=== PATIENT | female | born 1940 | race Caucasian/White ===

== ENCOUNTER → 2018-04-29 06:49 | Outpatient (CLI) | payer MEDICARE, SELFPAY ==
--- NOTE | 2018-04-29 06:52 | CA_ITS ---
PROCEDURE: 2-D M-mode and color Doppler study INDICATIONS FOR THE TEST: Chest pain COPD Heart Murmur Tobacco Smoking Palpitations Fatigue Syncope Edema Hypertension+Diabetes Mellitus Rheumatic Fever SOB+YOST Obesity Hyperlipidemia Family History HD Additional History CAD, STENTS PATIENT INFORMATION HEIGHT: 66 WEIGHT:172 GENDER: Female B/P:139/78 2-D/M-MODE INTERPRETATION: 2-D MEASUREMENTS OBSERVED VALUES IN CMS Right Ventricular Dimension (RVDd) 1.5 Interventricular Septum (Thickness)(IVsd) 1.2 Left Ventricular Internal Dimensions(LVIDd) 4.5 Left Ventricular Posterior Wall (Thickness)(LVPWd) 1.0 Aortic Root 3.1 Aortic Cusp Separation 2.0 Left Atrial Dimensions (LAD) 3.8 2D 1. Left atrium is mildly enlarged, left ventricle is normal size, there is mild concentric left ventricular hypertrophy, visually estimated ejection fraction of 55% with no obvious regional wall motion abnormality. 2. The right atrium and right ventricle are normal size and contractility. 3. The aortic valve is minimally thickened and fibrosed. 4. The mitral and tricuspid valve leaflets are minimally thickened. 5. The pulmonic valve is poorly visualized. 6. No significant pericardial effusion noted DOPPLER INTERROGATION: Doppler interrogation of the aortic, mitral and tricuspid valvular presence of moderate mitral and mild tricuspid regurgitation, calculated right ventricular systolic pressure is 42 mmHg consistent with moderate pulmonary hypertension, inferior vena cava is dilated without significant inspiratory collapse. CONCLUSION: 1. Mildly enlarged left atrium, normal left ventricular size, mild concentric left ventricular hypertrophy, visually estimated ejection fraction 55% with no obvious regional wall motion abnormality, diastolic parameters are inconclusive. 2. Moderate mitral and mild tricuspid regurgitation, calculated right ventricular systolic pressure is 42 mmHg consistent with moderate pulmonary hypertension. Inferior vena cava is dilated without significant. 3. No significant pericardial effusion noted.
--- NOTE | 2018-04-29 06:52 | NM_ITS ---
History and Indications: Coronary artery, hyperlipidemia, chest pain and shortness of breath Procedure: Patient received a 0.4 mg of Lexiscan, resting heart rate was 52 bpm, blood pressure was 196/95. With Lexiscan maximum heart rate achieved was 75 bpm which is less than 85% of the maximum predicted heart rate and the blood pressure was 154/70. With Lexiscan patient denied any complained of chest pain. Electrocardiogram: Resting electrocardiogram shows sinus bradycardia, inferolateral ST-T wave changes consider ischemia, with Lexiscan less than 1.[address] segment depression noted from the baseline EKG. The EKG portion of the Lexiscan Myoview is nondiagnostic. Cardiac stress and resting SPECT images: Cardiac stress and rest SPECT images were obtained using technetium 99 Myoview 32.9 mCi at stress and 10.6 mCi at rest, gated SPECT further analysis of segmental wall motion and calculation of the ejection fraction also done. Cardiac stress and rest images show uniform myocardial activity without any segmental perfusion abnormality, computer derived ejection fraction is over 65% with no obvious regional wall motion abnormality, right ventricle is normal size and contractility. Conclusion: 1. The EKG portion of the Lexiscan Myoview is nondiagnostic. 2. No obvious scintigraphic evidence of reversible ischemia seen, computer derived ejection fraction is over 65% with no obvious regional wall motion abnormality, right ventricle is normal size and contractility. 3. Normal Lexiscan Myoview study.
--- NOTE | 2018-04-29 07:41 | HMH.ITSHM ---
ASA ATORVASTATIN BLOOD THINNER
== END ==
PROVIDERS: PCP Internal Medicine; Visit Provider Internal Medicine
DX: R06.02 Shortness of breath (principal); I25.10 Atherosclerotic heart disease of native coronary artery without angina pectoris
CPT/HCPCS: 78452; 93017; 93306; A9502; J2785

== ENCOUNTER → 2020-09-13 12:48 | Outpatient (CLI) | payer MEDICARE, SELFPAY ==
--- NOTE | 2020-09-13 | CA_ITS ---
APPROVED REPORT EXAM: Comprehensive 2D, Doppler, and color-flow Echocardiogram Rehabilitation Counsellor: Zoila Galarza RDCS Ht: 5 ft 6 in Wt: 169lbs BSA: 1.86 BP: 167/65 mmHg Indications: AF,ABN EKG,CAD,PHTN 2D Dimensions LVOT 1.47 cm (M/F) 1.5-2.5 M-Mode Dimensions RVDd 2.05 cm (0.9-2.6) LA Diam 3.54 cm (1.9-4.0) LVDd 4.10 cm (3.5-5.7) Ao Diam 3.47 cm (2.0-3.7) LVDs 2.32 cm (3.5-5.7) IVSd 1.21 cm (0.6-1.1) PWd 1.02 cm (0.6-1.1) EF (Teich) 75.10% FS 43.40% EDV (Teich) 74.20 mL ESV (Teich) 18.50 mL LV Diastology E Decel Time 100.00 (160-240 msec) E/A Ratio 5.7 MED E' 6.20 (< 7 cm/sec) E'/MED E' Ratio 15.60 (>14) LAT E' 4.30 (<10 cm/sec) E/LAT E' Ratio 22.49 (>14) Mitral Valve MV E Max Flex. 97.00 (40-130 cm/s) MV A Velocity 17.00 (40-130 cm/s) E/A Ratio 5.76 MV Decel. Time 100.00 (160-240 ms) MV PHT 29.00 ms Tricuspid Valve TR P. Velocity 274.00 cm/s RAP Estimate 10.00 mmHg RVSP 40.10 mmHg Left Ventricle Left atrium is moderately enlarged, left ventricle is normal size, mild concentric left ventricular hypertrophy, visually estimated ejection fraction 55% with no regional wall motion abnormality, diastolic parameters are inconclusive. Right Ventricle Right atrium and right ventricle are normal size and contractility. Aortic Valve Aortic valve is minimally thickened and fibrosed, there is no aortic stenosis or aortic insufficiency. Mitral Valve Mitral valve leaflets are minimally thickened, there is mild mitral annular calcification present, posterior mitral leaflet is mildly redundant, there is no mitral stenosis, there is moderate mitral regurgitation. Tricuspid Valve Tricuspid valve is grossly normal, there is mild tricuspid regurgitation, tricuspid regurgitation jet velocity is inadequate for calculation of the right ventricular systolic pressure. Pulmonic Valve Pulmonic valve is poorly visualized. Great Vessels Aortic root is normal size. Pericardium No significant pericardial effusion noted. Conclusion 1. Moderately enlarged left atrium, normal left ventricular size, mild concentric left ventricular hypertrophy, visually estimated ejection fraction 55% with no regional wall motion abnormality, diastolic parameters are inconclusive. 2. Moderate mitral and mild tricuspid regurgitation. 3. No significant pericardial effusion noted. Electronically signed by : Huey Feng, 09/14/2020 05:44:02
== END ==
PROVIDERS: Visit Provider Internal Medicine
DX: I48.3 Typical atrial flutter (principal)
CPT/HCPCS: 93306

== ENCOUNTER 2020-10-14 11:55 | Day surgery (SDC) | payer MEDICARE, SELFPAY ==
[2020-10-14] VITALS (8 sets, daily range): BP systolic 71–143; BP diastolic 42–97; PULSE 38–110; RESP 14–18; TEMP 36.6; O2SAT 90–100; BMI 27.1
[2020-10-14 12:28] LABS: Basophils # 0.3 K/mm3 (0-0.2); Basophils % 4.5 % (0.1-2.0); Eosinophils # 0.1 K/mm3 (0.0-0.4); Hematocrit 51.9 % (37.0-47.0); Hemoglobin 15.2 g/dL (12.2-16.2); Lymphocytes # 2.3 K/mm3 (0.7-4.5); Lymphocytes % 31.6 % (10-50); Mean Corpuscular HGB Conc 29.3 g/dL (31.8-35.4); Mean Corpuscular Hemoglobin 32.3 pg (27.0-31.2); Mean Platelet Volume 14.3 fl (7.4-10.4); Monocytes # 0.4 K/mm3 (0.1-1.0); Monocytes % 5.4 % (1.7-9.3); Neutrophils # 4.6 K/mm3 (1.8-7.8); Platelet Count 198 K/mm3 (142-424); Red Blood Count 4.71 M/mm3 (4.20-5.40); White Blood Count 7.3 K/mm3 (4.8-10.8)
--- NOTE | 2020-10-14 12:40 | CA_ITS ---
APPROVED REPORT EXAM: Comprehensive 2D, Doppler, and color-flow Echocardiogram Technical Expert: Violet Rm RT(R) Ht: 5 ft 5 in Wt: 168lbs BSA: 1.84 BP: 164/86 mmHg Indications: a-fib Procedure After obtaining informed consent, patient underwent transesophageal echo in the [facility]. Type of Sedation : Conscious Sedation Sedation was administered by Kendrick Reynolds C.R.N.A. Transesophageal probe was inserted and advanced into esophagus without difficulty by Dr. Mary Pineda. The ISAMAR was performed without complications. Synchronized Cardioversion attempted: Successful Synchronized Cardioversion acheived with 150 Joules after 1 attempt(s). Rhythm following Synchronized Cardioversion: Sinus Bradycardia Throughout the procedure, the blood pressure, pulse oximetry, cardiac rhythm, and rate were monitored. The patient tolerated the procedure without adverse effects. Recovery from conscious sedation was uneventful and vital signs were stable. Left Ventricle Left ventricle is normal size, visually estimated ejection fraction 55% with no regional wall motion abnormality. Right Ventricle Right ventricle is mildly enlarged with normal contractility. Atria Left atrium is moderately enlarged, left atrial appendage free of thrombus, there is poor appendage flow by spectral Doppler. Right atrium is mildly enlarged. Intra-atrial septum is intact, there is no flow across the interatrial septum, agitated saline contrast study fails to identify intracardiac shunt. Aortic Valve Aortic valve is minimally thickened and fibrosed, there is no aortic stenosis or aortic insufficiency. Mitral Valve Mitral valve leaflets are minimally thickened, there is no mitral stenosis, there is moderate to severe mitral regurgitation. Tricuspid Valve Tricuspid valve is grossly normal, there is mild tricuspid regurgitation. Pulmonic valve is grossly normal, Great Vessels Aortic root is normal size Ascending, arch and descending thoracic aorta there is no aneurysm or dissection, atheromatous plaque seen in the ascending and descending thoracic aorta. Pericardium No significant pericardial effusion noted. Conclusion 1. Moderately enlarged left atrium, normal left ventricular size, mild concentric left ventricular hypertrophy, visually estimated ejection fraction 55% in the obtained views with no regional wall motion abnormality. No thrombus seen in the left atrial appendage. 2. Moderate to severe mitral regurgitation. 3. Other ancillary findings as described above. 4. Successful electrical DC cardioversion to restore sinus rhythm. Electronically signed by : Huey Feng, 10/14/2020 15:17:19
[2020-10-14 12:45] LABS: Chloride 103 mmol/L (98-107)
[2020-10-14 12:46] LABS: Potassium 4.4 mmoL/L (3.5-5.1); Sodium 141 mmol/L (136-145)
[2020-10-14 12:49] LABS: Anion Gap 12.4 mEq/L (5-15); Blood Urea Nitrogen 18 mg/dl (7-17); Calcium 9.5 mg/dl (8.4-10.2); Carbon Dioxide 30 mmol/L (22.0-30.0); Creatinine Clearance Estimated 55 mL/min (50-200); Estimated Glomerular Filt Rate 60 ml/min (>60); GFR (African American) 73 ML/MIN (>60); Glucose 98 mg/dl (74-100)
--- NOTE | 2020-10-14 12:53 | HMH.ANESCL ---
[facility] Anesthesia Checklist - Patient Identification Patient Identification: Arm Band, Verbal (Name & ) - Structural Data Admitted From: Home Planned Operative Procedure/s: ISAMAR Consent for Planned Operative Procedure(s) Verified: Yes Verified Documents: History and Physical - NPO Status Verified Time NPO: 00:00 - Chart Verification Results Verified: CBC, BMP - Additional verifications Patient : No Anesthesia Reactions: No Hx Blood Transfusions: No Blood Transfusion Reaction: No Cephalosporin Allergy: No Previous Colonoscopy: Yes - Cardiovascular Assessment Heart Sounds: S1 & S2 Pulse Strength: Baseline Pulse Rhythm: Regular Peripheral Edema: No - Airway Assessment C-Spine Mobility Assessed: Yes TMJ Mobility Assessed: Yes Dentition: Good Dentition - Neurological Assessment Level of Consciousness: Awake, Alert, Appropriate Hx Seizures: No Numbness or tingling in extremities: No - Anesthesia Plan Anesthesia Plan: Verified ASA Class: III Anesthesia Type: MAC [facility] History I have reviewed the patient's past medical history: Yes Medical History: Reports:: Atrial Fibrillation, Congestive Heart Failure, Coronary Artery Disease, Gastroesophageal Reflux Disease(GERD), Hyperlipidemia, Hypertension, Myocardial Infarction *Have you ever received a pneumonia vaccine?: Yes *Have you received a flu vaccine this season?: No Anesthesia experience/problems:: none Other Surgeries: Yes: Appendectomy, Cardiac Catheterization, Coronary Stent, Thyroidectomy, Tubal Ligation - *Social History Last grade of school completed: High school graduate Smoking Status: Never smoker Alcohol Intake: never Substance Use Type: denies use *Occupational Status:: retired *Travel in the last 8 weeks: None Family Hx:: Heart Attack, Stroke
[2020-10-14 13:03] LABS: Coronavirus 19 IgG Antibody Negative (Negative); Coronavirus 19 IgM Antibody Negative (Negative)
--- NOTE | 2020-10-14 13:40 | SUR.PHASEII ---
CARDIOVERSION COMPLETED. BRIEF ASYSTOLE FOLLOWED BY SB. HYPOTENSION NOTED. SEE CHARTING FOR DETAILS.
--- NOTE | 2020-10-14 13:48 | SUR.PHASEII ---
1335 BP = 70/42 HR = 45 RR = 16 O2 = 91% ON 4L NC
== END 2020-10-14 15:00 | disposition home or self-care (01) ==
LOC: CATHLAB 11:58
PROVIDERS: PCP Internal Medicine Cardiovascular Disease; Visit Provider Internal Medicine Cardiovascular Disease
DX: E78.5 Hyperlipidemia, unspecified (principal); I11.9 Hypertensive heart disease without heart failure; I25.10 Atherosclerotic heart disease of native coronary artery without angina pectoris; I27.20 Pulmonary hypertension, unspecified; I34.0 Nonrheumatic mitral (valve) insufficiency; I48.92 Unspecified atrial flutter; K21.9 Gastro-esophageal reflux disease without esophagitis; R06.02 Shortness of breath; I48.91 Unspecified atrial fibrillation; I65.23 Occlusion and stenosis of bilateral carotid arteries; Z79.01 Long term (current) use of anticoagulants
CPT/HCPCS: 80048; 85025; 86328; 92960; 93225; 93312

== ENCOUNTER 2021-04-13 12:52 | Day surgery (SDC) | payer MEDICARE, SELFPAY ==
[2021-04-13] VITALS (11 sets, daily range): BP systolic 128–187; BP diastolic 58–97; PULSE 51–77; RESP 13–18; TEMP 36.8; O2SAT 95–98; BMI 26.8
--- NOTE | 2021-04-13 13:28 | IR_ITS ---
APPROVED REPORT Patient Location: Outpatient Algebraist: KAMLESH Washington RT (R) PROCEDURES Left heart catheterization Left ventriculogram Selective coronary angiogram INDICATION Crescendo angina pectoris, Known coronary disease with multivessel stenting including left main stenting, Informed consent was obtained prior to the procedure. COMPLICATIONS None Estimated Blood Loss: less than 10 mls TECHNIQUE One percent lidocaine used to anesthetize the right anterior aspect of the wrist. The right radial artery was accessed via the Seldinger technique. A 6 Kazakh sheath was placed in the right radial artery. 2.5 mg of verapamil, 800 mcg of nitroglycerin, 1mg Lidocaine and 5000 U Heparin were given through the arterial sheath. The trap catheter was also used to perform left heart catheterization, left ventriculogram and selective coronary angiogram. At the end of the procedure the sheath was removed good hemostasis was achieved using Traclet band, patient was transferred to the postop holding area in stable condition. ANGIOGRAPHIC RESULTS The left main artery Has a stent in the mid segment which extends into the LAD the stent is widely patent with 20 to 30% concentric in-stent restenosis. The left anterior descending artery Has a stent which originates off the left main artery. The proximal portion is widely patent with no angiographic evidence of in-stent restenosis there is excellent transitioning into the proximal LAD which then has additional 20% stenoses. The remaining LAD is widely patent The circumflex artery Is nondominant has a stent originating off the left main artery which is widely patent with minimal in-stent restenosis and excellent distal transitioning. The right coronary artery Is a large dominant vessel and has mild mid vessel 10 to 20% stenosis The LANE ventriculogram reveals Normal 65% The left ventricular end-diastolic pressure 10 mmHg IMPRESSION Widely patent stents as described above Normal ejection fraction Normal left ventricular and SI pressure PLAN 1. Continue medical management 2. Treatment of hypertension 3. Aggressive risk factor modification Electronically signed by : Jad Becerra, 04/13/2021 14:27:44
[2021-04-13 13:31] LABS: Basophils % 0.7 % (0.1-2.0); Eosinophils % 0.8 % (0.1-12.0); Hematocrit 41.4 % (37.0-47.0); Hemoglobin 13.9 g/dL (12.2-16.2); Lymphocytes # 2.2 K/mm3 (0.7-4.5); Mean Corpuscular HGB Conc 33.6 g/dL (31.8-35.4); Mean Corpuscular Hemoglobin 32.3 pg (27.0-31.2); Mean Corpuscular Volume 96.2 fl (81-99); Mean Platelet Volume 8.7 fl (7.4-10.4); Monocytes # 0.3 K/mm3 (0.1-1.0); Monocytes % 5.9 % (1.7-9.3); Neutrophils % 53.6 % (37.0-80.0); Platelet Count 196 K/mm3 (142-424); White Blood Count 5.6 K/mm3 (4.8-10.8)
[2021-04-13 13:55] LABS: Chloride 105 mmol/L (98-107); Potassium 4.5 mmoL/L (3.5-5.1); Sodium 141 mmol/L (136-145)
[2021-04-13 13:58] LABS: Blood Urea Nitrogen 14 mg/dl (7-17); Creatinine Clearance Estimated 53 mL/min (50-200); Estimated Glomerular Filt Rate 60 ml/min (>60); GFR (African American) 73 ML/MIN (>60)
[2021-04-13 13:59] LABS: Anion Gap 13.5 mEq/L (5-15); Calcium 9.5 mg/dl (8.4-10.2); Carbon Dioxide 27 mmol/L (22.0-30.0); Glucose 86 mg/dl (74-100)
== END 2021-04-13 16:35 | disposition home or self-care (01) ==
PROVIDERS: PCP Family Medicine; Visit Provider Internal Medicine
DX: E78.2 Mixed hyperlipidemia (principal); I11.9 Hypertensive heart disease without heart failure; I27.20 Pulmonary hypertension, unspecified; I34.0 Nonrheumatic mitral (valve) insufficiency; I48.0 Paroxysmal atrial fibrillation; I65.23 Occlusion and stenosis of bilateral carotid arteries; K21.9 Gastro-esophageal reflux disease without esophagitis; R06.00 Dyspnea, unspecified; R60.0 Localized edema; I25.110 Atherosclerotic heart disease of native coronary artery with unstable angina pectoris; T82.855A Stenosis of coronary artery stent, initial encounter
CPT/HCPCS: 36415; 80048; 85025; 93458; 99152; C1725; C1769; J1644; Q9967; U0003

== ENCOUNTER → 2022-02-16 11:57 | Outpatient (CLI) | payer MEDICARE, SELFPAY ==
--- NOTE | 2022-02-16 12:05 | XR_ITS ---
FINAL REPORT TECHNIQUE: Chest PA & Lateral CLINICAL HISTORY: soa FINDINGS: 2 views of the chest were performed. The heart size is normal. The mediastinum is within normal limits. There is a calcified granuloma in the medial right apex. There are no pleural effusions. There is no pneumothorax. The bony thorax appears intact. IMPRESSION: No acute cardiopulmonary process. Reviewed, Interpreted and Dictated by Abdiaziz Carbajal MD Transcribed by Junior Leiva Authenticated by Abdiaziz Carbajal MD on 02/16/2022 02:21:08 PM [facility]
[2022-02-16 13:06] LABS: Basophils % 0.6 % (0.1-2.0); Eosinophils % 0.5 % (0.1-12.0); Hematocrit 40.4 % (37.0-47.0); Hemoglobin 13.3 g/dL (12.2-16.2); Lymphocytes # 1.6 K/mm3 (0.7-4.5); Lymphocytes % 24.7 % (10-50); Mean Corpuscular Hemoglobin 32.8 pg (27.0-31.2); Mean Corpuscular Volume 99.6 fl (81-99); Mean Platelet Volume 9.2 fl (7.4-10.4); Monocytes # 0.4 K/mm3 (0.1-1.0); Neutrophils # 4.4 K/mm3 (1.8-7.8); Neutrophils % 68.1 % (37.0-80.0); Platelet Count 204 K/mm3 (142-424); Red Blood Count 4.06 M/mm3 (4.20-5.40); Red Cell Distribution Width 12.3 % (11.5-17.5); White Blood Count 6.4 K/mm3 (4.8-10.8)
[2022-02-16 15:13] LABS: Alanine Aminotransferase 22 U/L (12-78); Alkaline Phosphatase 85 U/L (38-126); Anion Gap 10.3 mEq/L (5-15); Aspartate Amino Transferase 32 U/L (14-36); Bilirubin,Direct 0.2 mg/dl (0.0-0.4); Bilirubin,Indirect 0.5 mg/dL (0.0-0.9); Bilirubin,Total 0.7 mg/dl (0.2-1.3); Bilirubin,Unconjugated 0.5 mg/dL (0.0-1.1); Blood Urea Nitrogen 15 mg/dl (7-17); Calcium 9.2 mg/dl (8.4-10.2); Carbon Dioxide 28 mmol/L (22.0-30.0); Chloride 105 mmol/L (98-107); Estimated Glomerular Filt Rate 60 ml/min (>60); GFR (African American) 73 ML/MIN (>60); Glucose 78 mg/dl (74-100); Potassium 4.3 mmoL/L (3.5-5.1); Sodium 139 mmol/L (136-145); Total Protein,Serum 6.6 g/dl (6.3-8.2)
[2022-02-16 15:29] LABS: Free T4 (Free Thyroxine) 1.35 ng/dl (0.78-2.19)
[2022-02-16 15:42] LABS: Thyroid Stimulating Hormone 2.23 uIU/mL (0.465-4.68)
== END ==
PROVIDERS: PCP Family Medicine; Visit Provider Internal Medicine
DX: E78.5 Hyperlipidemia, unspecified (principal); I11.9 Hypertensive heart disease without heart failure; I25.10 Atherosclerotic heart disease of native coronary artery without angina pectoris; I27.20 Pulmonary hypertension, unspecified; I34.0 Nonrheumatic mitral (valve) insufficiency; I48.0 Paroxysmal atrial fibrillation; I48.92 Unspecified atrial flutter; I65.29 Occlusion and stenosis of unspecified carotid artery; I77.9 Disorder of arteries and arterioles, unspecified; K21.9 Gastro-esophageal reflux disease without esophagitis; R06.00 Dyspnea, unspecified; R94.31 Abnormal electrocardiogram [ECG] [EKG]; E11.9 Type 2 diabetes mellitus without complications; I63.9 Cerebral infarction, unspecified
CPT/HCPCS: 36415; 71046; 80048; 80076; 84439; 84443; 85025

== ENCOUNTER 2022-02-20 17:20 | Inpatient (IN) | payer MEDICARE, SELFPAY ==
[2022-02-20] VITALS (8 sets, daily range): BP systolic 80–138; BP diastolic 40–84; PULSE 42–105; RESP 16–20; TEMP 36.6; O2SAT 89–100; BMI 27.2; BMI 26.5
[2022-02-20 13:15] LABS: Coronavirus 19, PCR Not Detected (NotDetected); Influenza A, PCR Not Detected (NotDetected); Influenza B, PCR Not Detected (NotDetected)
--- NOTE | 2022-02-20 13:21 | CA_ITS ---
APPROVED REPORT EXAM: Comprehensive 2D, Doppler, and color-flow Echocardiogram Operating Room Assistant: RT Jem(R) Ht: 5 ft 6 in Wt: 169lbs BSA: 1.86 BP: 150/84 mmHg Indications: HTN, hyperlipidemia, PHTN, CAD, GERD, AFIB Procedure After obtaining informed consent, patient underwent transesophageal echo in the [facility]. Type of Sedation : Conscious Sedation Sedation was administered by Kyree Agarwal C.R.N.A. Propofol () Transesophageal probe was inserted and advanced into esophagus without difficulty by Dr. Felix Becerra. Echo enhancement indication: R/O Thrombus. The ISAMAR was performed without complications. Synchronized Cardioversion acheived with 200 Joules after 1 attempt(s). Throughout the procedure, the blood pressure, pulse oximetry, cardiac rhythm, and rate were monitored. The patient tolerated the procedure without adverse effects. Recovery from conscious sedation was uneventful and vital signs were stable. Following the cardioversion patient experienced approximately 15 seconds of asystole. Following the asystole she then was quite bradycardic with heart rates in the high teens which then progressed to the 20s 30s and then low 40s. Patient left the [facility] following recovery with sinus bradycardia at 40 to 42 bpm Electronically signed by : Jad Becerra MD 02/21/2022 12:03:02
--- NOTE | 2022-02-20 17:43 | PC.NURSE ---
Addendum entered by Rufino Richardson RN 02/20/22 17:44: cefazolin was to be given in the am before surgery. Original Note: Called and spoke with Joan in veterinarian laboratory animal care at this time, in order to clarify cefazolin doesn't need to be given at this time. Joan stated med
--- NOTE | 2022-02-20 18:33 | PC.NURSE ---
Pt is a poor historian in RE to meds taken on regular basis.
[2022-02-21] VITALS (16 sets, daily range): BP systolic 96–163; BP diastolic 47–73; PULSE 48–65; RESP 14–21; TEMP 36.5–36.9; O2SAT 90–97; BMI 27.1
--- NOTE | 2022-02-21 | IR_ITS ---
APPROVED REPORT Patient Location: Emergent Vegetable Inspector: KAMLESH Bhakta RT (R) PROCEDURES 1.Pocket formation for Permanent Pacemaker Placement. 2. Placement of an atrial sensing and pacing coil into the right atrial appendage. 3. Placement of a ventricular sensing and pacing coil in the right ventricular apex. 4. Permanent Pacemaker Placement. INDICATION Symptomatic BradycardiaSymptomatic Bradycardia Informed consent was obtained prior to the procedure. COMPLICATIONS NONE Estimated Blood Loss: LESS THAN 10 ML TECHNIQUE 1% Lidocaine with epinephrine used to anesthetized the left anterior aspect of the chest. Scalpel was used to make the initial cutaneous incision while electrocautery was used to dissect down tinto the fascia. The fascia was lifted off the pectoralis muscle and digitally manipulated creating a pocket for the pacemaker. The patient was then placed in Trendelenburg position and the subclavian vein was accessed twice via the Selinger technique, there are two wires in the vein. A 6 [place]orese sheath was placed under fluoroscopic guidance into the subclavian vein over one of the wires while keeping the other wire in place within the subclavian vein. The dilator was removed from the sheath. Using fluoroscopic guidance, the ventricular lead was placed into the right ventricular apex, screwed and secured into place. Electronic interrogation proved acceptable thresholds and voltage within the lead. Using 3-0 silk, the ventricular lead was then secured into place. Lead was secured to the facia using the 3-0 silk. Following this, the sheath was pealed away. An additional 6 [place]orese fresh sheath and dilator was placed over the existing wire. Using fluoroscopic guidance, the atrial lead was the placed into the right atrial appendage and screwed and secured in place. Electrical interrogation demonstrated acceptable thresholds and voltage number. The atrial lead was then secured into place using 3-0 silk. 1 gram of Ancef was used to flush the pocket. Following the pacemaker generator being secured to the fascia and in place, Monocryl was used to close the subcutaneous layers while jalen were used to close the cutaneous layer. A pressure dressing was placed and the patient was transferred to the postop holding area in stable condition for postoperative care. INTERROGATION Generator Model number: iCeutica JEFFREY DR IS-1 L311 Generator Serial number: [id number] Atrial lead model number: Ingevity + IS-1 Bi Positive Fix RA/RV 52 cm 7841 Atrial lead serial number: [id number] P-wave: 3.5 mV Impedence: 563 Ohms Threshold: 1.5V @ 0.4ms Current: 2.7 mA Right Ventricular lead model number: Ingevity + IS-1 Bi Positive Fix RA/RV 59cm 7842 Right Ventricular lead serial number: [id number] R-wave: 20.0 mV Impedence: 844 Ohms Threshold: 0.7V @ 0.4ms Current: 0.9 mA Pacing Parameters: Mode: DDDR Base/Max Track:60 ppm / 130 ppm No diaphragmatic stimulation at 10 volts. IMPRESSION 1. Successful pocket formation for Permanent Pacemaker Placement. 2. Successful placement of an atrial sensing and pacing coil into the right atrial appendage. 3. Successful placement of a ventricular sensing and pacing coil in the right ventricular apex. 4. Successful permanent Pacemaker Placement. PLAN 1. POST OP WOUND CARE Electronically signed by : Jad Becerra MD 02/21/2022 15:15:00
--- NOTE | 2022-02-21 05:23 | PC.NURSE ---
No acute changes. Pt has rested well t/o night. Pt has been bradycardic t/o night with HR 45-60. Pt has been NPO since 0000 and gave herself a bath. Call light within reach.
[2022-02-21 06:23] LABS: Basophils # 0.1 K/mm3 (0-0.2); Basophils % 1.3 % (0.1-2.0); Eosinophils # 0.1 K/mm3 (0.0-0.4); Eosinophils % 1.3 % (0.1-12.0); Hematocrit 39.3 % (37.0-47.0); Hemoglobin 12.6 g/dL (12.2-16.2); Lymphocytes # 2.3 K/mm3 (0.7-4.5); Lymphocytes % 34.3 % (10-50); Mean Corpuscular Hemoglobin 32.2 pg (27.0-31.2); Mean Corpuscular Volume 100.9 fl (81-99); Mean Platelet Volume 9.3 fl (7.4-10.4); Monocytes # 0.4 K/mm3 (0.1-1.0); Monocytes % 6.3 % (1.7-9.3); Neutrophils # 3.8 K/mm3 (1.8-7.8); Neutrophils % 56.8 % (37.0-80.0); Platelet Count 224 K/mm3 (142-424); Red Cell Distribution Width 12.6 % (11.5-17.5); White Blood Count 6.6 K/mm3 (4.8-10.8)
[2022-02-21 06:28] LABS: Chloride 108 mmol/L (98-107)
[2022-02-21 06:29] LABS: Potassium 4.4 mmoL/L (3.5-5.1); Sodium 137 mmol/L (136-145)
[2022-02-21 06:31] LABS: Blood Urea Nitrogen 23 mg/dl (7-17); Creatinine Clearance Estimated 44 mL/min (50-200); Estimated Glomerular Filt Rate 43 ml/min (>60); GFR (African American) 52 ML/MIN (>60)
[2022-02-21 06:32] LABS: Anion Gap 9.4 mEq/L (5-15); Carbon Dioxide 24 mmol/L (22.0-30.0); Glucose 85 mg/dl (74-100)
--- NOTE | 2022-02-21 07:16 | P.CONPHA_ITS ---
[facility] Pharmacy VTE Monitoring - Patient Demographics Admission date: 02/20/22 Report Date: 02/21/22 Time: 07:16 Allergies/Adverse Reactions: Patient Allergies No Known Allergies Allergy (Verified 02/20/22 11:33) Height: 1.68 m Weight: 76.657 kg - VTE Risk Labs: VTE Related Lab Results Hgb 12.6 g/dL (12.2-16.2) 02/21/22 05:58 Hct 39.3 % (37.0-47.0) 02/21/22 05:58 Plt Count 224 K/mm3 (142-424) 02/21/22 05:58 BUN 23 mg/dl (7-17) H 02/21/22 05:58 Creatinine 1.20 mg/dl (0.52-1.04) H 02/21/22 05:58 Estimated Creat Clear 44 mL/min (50-200) 02/21/22 05:58 - Prophylaxis VTE Prophylaxis Ordered?: Yes Types of VTE Prophylaxis: TEDS Knee High Location of Applied Device: Bilateral Lower Extremeties
--- NOTE | 2022-02-21 08:06 | HMH.ANESCL ---
[facility] Anesthesia Checklist - Structural Data Admitted From: Home Planned Operative Procedure/s: hunter,cardioversion Consent for Planned Operative Procedure(s) Verified: Yes - Additional verifications Anesthesia Reactions: No Hx Blood Transfusions: No Blood Transfusion Reaction: No - Airway Assessment C-Spine Mobility Assessed: Yes TMJ Mobility Assessed: Yes Dentition: Dentures-good fit - Neurological Assessment Level of Consciousness: Awake, Alert, Appropriate - Anesthesia Plan Anesthesia Risk discussed: Yes Anesthesia Plan: Verified ASA Class: IV Anesthesia Type: MAC [facility] History I have reviewed the patient's past medical history: Yes Medical History: Reports:: Atrial Fibrillation, Congestive Heart Failure, Coronary Artery Disease, Gastroesophageal Reflux Disease(GERD), Hyperlipidemia, Hypertension, Myocardial Infarction Denies:: Cancer, Diabetes Mellitus Type 1, Diabetes Mellitus Type 2, Internal Pacemaker, MRSA, Seizures *Have you ever received a pneumonia vaccine?: Yes *Have you received a flu vaccine this season?: No Other Medical History: Denies: Blood Transfusion Reaction Anesthesia experience/problems:: none Other Surgeries: Yes: Appendectomy, Cardiac Catheterization, Coronary Stent, Thyroidectomy, Tubal Ligation. No: Pacemaker Amputation: No Fractures: No - *Social History Last grade of school completed: 11th or 12th Smoking Status: Never smoker Alcohol Intake: never Substance Use Type: denies use *Occupational Status:: other Housing: house Household Members: spouse *Travel in the last 8 weeks: None Family Hx:: Heart Attack, Stroke
--- NOTE | 2022-02-21 09:51 | HMH.PHAINT ---
MEDICATION RECONCILIATION COMPLETED ON PATIENT USING EXTERNAL FILL HISTORY FROM PHARMACY AND LIST FROM CARDIOLOGY OFFICE. -ARLENE LAWSOND
--- NOTE | 2022-02-21 10:18 | HMH.PNCARD ---
Subjective Date: 02/21/22 Time: 09:00 Principal diagnosis: SSS, tachy-gabriele syndrome Interval history: This is an 81-year-old white female who was seen in cardiology clinic yesterday. The patient was found to be in atrial fibrillation with RVR during her office visit yesterday. She was set up for ISAMAR and cardioversion. The patient was successfully converted to sinus rhythm but she was bradycardic in the 40s and had a 15-second asystole. The patient was then admitted to the hospital for sick sinus syndrome and tachybradycardia syndrome to undergo permanent pacemaker placement today. This morning she denies any chest pain or pressure. She denies any shortness of breath or edema. She denies any fever, chills, nausea, vomiting, diarrhea, PND or orthopnea. She states that sometimes she feels numb all over and has periods where she has dizziness. This is most likely from her bradycardia. She remains bradycardic with a heart rate in the 50s this morning with no rate control medications for her atrial fibrillation. Exam Vital signs and Labs for Last 24 Hours: Temp Pulse Resp BP Pulse Ox 98.1 F 55 L 18 126/73 96 02/21/22 07:23 02/21/22 07:23 02/21/22 07:23 02/21/22 07:23 02/21/22 07:23 Laboratory Results - last 24 hr 02/20/22 13:14: SARS-CoV-2 (PCR) Not detected, Influenza A Untype (PCR) Not detected, Influenza Type B (PCR) Not detected 02/21/22 05:58: WBC 6.6, RBC 3.90 L, Hgb 12.6, Hct 39.3, MCV 100.9 H, MCH 32.2 H, MCHC 32.0, RDW 12.6, Plt Count 224, MPV 9.3, Neut % (Auto) 56.8, Lymph % (Auto) 34.3, [place] % (Auto) 6.3, Eos % (Auto) 1.3, Baso % (Auto) 1.3, Neut # (Auto) 3.8, Lymph # (Auto) 2.3, [place] # (Auto) 0.4, Eos # (Auto) 0.1, Baso # (Auto) 0.1 02/21/22 05:58: Sodium 137, Potassium 4.4, Chloride 108 H, Carbon Dioxide 24, Anion Gap 9.4, BUN 23 H, Creatinine 1.20 H, Estimated Creat Clear 44, Estimated GFR 43 L, Est GFR ( Amer) 52 L, Glucose 85, Calcium 8.0 L I & O for Last 24 hours: Intake & Output 02/18/22 02/19/22 02/20/22 02/21/22 23:59 23:59 23:59 23:59 Intake Total 0 / 0 Balance 0 / 0 Weight 164 lb 7 oz 169 lb Narrative: Telemetry strip is sinus rhythm with a rate of 50. - Constitutional no acute distress, average body habitus - *Routine HEENT Exam Head: Present: normocephalic, atraumatic Eye: Present: EOMI, PERRL ENT: Present: mucous membranes moist - *Routine Neck Exam Present: supple, full ROM, normal carotid upstroke. Absent: JVD, carotid bruit, lymphadenopathy - *Routine Respiratory Exam Present: CTA bilaterally - *Routine Cardiovascular Exam Present: RRR, Normal S1, Normal S2, bradycardia - *Routine Abdominal Exam Present: soft, normoactive bowel sounds. Absent: tenderness, distended - *Routine Extremities Exam Present: full ROM, pulses intact, normal capillary refill. Absent: cyanosis, clubbing, edema - *Routine Skin Exam Present: intact, warm. Absent: erythema, rash - *Routine Neurological Exam Present: alert, oriented X3, CN II-XII intact. Absent: sensory deficit, motor deficit Progress Note: A&P (1) Sick sinus syndrome Status: Acute (2) Tachy-gabriele syndrome Status: Acute (3) Asystole Status: Acute (4) Atrial fibrillation with RVR Status: Acute (5) CAD (coronary artery disease) Status: Chronic (6) Carotid artery stenosis Status: Chronic (7) HHD (hypertensive heart disease) Status: Chronic (8) HLD (hyperlipidemia) Status: Chronic Assessment and Plan for All Diagnoses:: Plan: 1. The patient underwent outpatient ISAMAR and cardioversion yesterday. Her ISAMAR showed no evidence of a left atrial appendage clot and she was successfully cardioverted to sinus rhythm. However when she was cardioverted she had 15 seconds of asystole and she was in sinus bradycardia with a heart rate in the 40s. This morning she remains bradycardic with a heart rate in the 50s. She is on no rate control medications at this time for her atrial fi
--- NOTE | 2022-02-21 14:17 | XR_ITS ---
FINAL REPORT CLINICAL HISTORY: Confirm pacemaker/AID placement COMPARISON: 02/16/2022 FINDINGS: A single view of the chest was obtained. A new left subclavian pacemaker. There is mild pulmonary vascular congestion. There is new mediastinal widening of uncertain significance. Some of this could be due to patient positioning but mediastinal hemorrhage is not excluded. There is no pneumothorax. IMPRESSION: New mediastinal widening which may be due to patient positioning but mediastinal hemorrhage is not excluded. If indicated, CT could further evaluate. Pulmonary vascular congestion. The patient's nurse, Ginette, was notified of these findings at 3:10 p.m. on 02/21/2022 Reviewed, Interpreted and Dictated by Luis Polo III, MD Transcribed by Mary Palomares Authenticated by Luis Polo III, MD on 02/21/2022 03:16:45 PM [facility][1]
--- NOTE | 2022-02-21 15:26 | CT_ITS ---
FINAL REPORT TECHNIQUE: Axial CT images were performed from the lung apices through the upper abdomen. Coronal reformats were submitted. This study was performed with techniques to keep radiation doses as low as reasonably achievable (ALARA). Individualized dose reduction techniques using automated exposure control or adjustment of mA and/or kV according to the patient's size were employed. CLINICAL HISTORY: mediastinal widening FINDINGS: A left subclavian pacemaker appears to be intravascular. There is no axillary adenopathy. There is no hilar or mediastinal mass or adenopathy. Heart size is normal. Stranding of the anterior mediastinum likely represents hemorrhage. There is a small amount of air at the base of the neck bilaterally. Small bilateral pleural effusions are present. There is bibasilar atelectasis. A calcified granuloma is seen in the right upper lobe. There is no pneumothorax. Limited images of the upper abdomen demonstrate a partially imaged gallstone in the gallbladder. IMPRESSION: Stranding in the anterior mediastinum which likely represents hemorrhage. Basilar atelectasis and small bilateral pleural effusions. Reviewed, Interpreted and Dictated by Luis Polo III, MD Transcribed by Mary Palomares Authenticated by Luis Polo III, MD on 02/21/2022 04:37:18 PM [facility]
--- NOTE | 2022-02-21 15:29 | HMH.HPDC ---
General - General Admission date:: 02/20/22 Discharge date: 02/21/22 *Admission Date: 02/20/22 *History of present illness: 81-year-old white female who was seen in cardiology clinic yesterday. The patient was found to be in atrial fibrillation with RVR during her office visit yesterday. She was set up for ISAMAR and cardioversion. The patient was successfully converted to sinus rhythm but she was bradycardic in the 40s and had a 15-second asystole. The patient was then admitted to the hospital for sick sinus syndrome and tachybradycardia syndrome to undergo permanent pacemaker placement today. This morning she denies any chest pain or pressure. She denies any shortness of breath or edema. She denies any fever, chills, nausea, vomiting, diarrhea, PND or orthopnea. She states that sometimes she feels numb all over and has periods where she has dizziness. This is most likely from her bradycardia. She remains bradycardic with a heart rate in the 50s this morning with no rate control medications for her atrial fibrillation (Per Ray Rodriguez ACUTE SPECIALIST). [facility] History I have reviewed the patient's past medical history: Yes Medical History: Reports:: Atrial Fibrillation, Congestive Heart Failure, Coronary Artery Disease, Gastroesophageal Reflux Disease(GERD), Hyperlipidemia, Hypertension, Myocardial Infarction Denies:: Cancer, Diabetes Mellitus Type 1, Diabetes Mellitus Type 2, Internal Pacemaker, MRSA, Seizures *Have you ever received a pneumonia vaccine?: Yes *Have you received a flu vaccine this season?: No Other Medical History: Denies: Blood Transfusion Reaction Anesthesia experience/problems:: none Other Surgeries: Yes: Appendectomy, Cardiac Catheterization, Coronary Stent, Thyroidectomy, Tubal Ligation. No: Pacemaker Amputation: No Fractures: No - *Social History Last grade of school completed: 11th or 12th Smoking Status: Never smoker Alcohol Intake: never Substance Use Type: denies use *Occupational Status:: other Housing: house Household Members: spouse *Travel in the last 8 weeks: None Family Hx:: Heart Attack, Stroke Review of Systems - Review of Systems Review of systems:: pertinent systems reviewed and negative unless documented below - Constitutional Reports fatigue, Denies body ache(s) - Eyes Denies blurry vision, Denies double vision - ENT Reports dizziness, Denies difficulty swallowing, Denies neck pain - *Cardiovascular Denies chest pain, Denies chest pain with activity - *Respiratory Denies chest congestion, Denies cough - *Gastrointestinal Reports abdominal pain, Denies change in stools - *Musculoskeletal Denies abnormal walking, Denies back pain - Integumentary/Breasts Denies changing lesions, Denies yellowing of the skin - *Neurologic Denies abnormal movements, Denies behavioral changes, Denies seizure-like activity - Psychiatric Denies change in appetite, Denies difficulty concentrating - Endocrine Reports increased thirst, Denies excessive sweating - Hematologic/Lymphatic Reports easy bleeding, Reports easy bruising - Allergic/Immunologic Reports GI upset with certain foods, Reports tongue swelling Exam Vital signs and Labs for Last 24 Hours: Temp Pulse Resp BP Pulse Ox 97.9 F 60 20 137/62 91 L 02/21/22 10:42 02/21/22 14:30 02/21/22 14:30 02/21/22 14:30 02/21/22 14:30 Laboratory Results - last 24 hr 02/20/22 13:14: SARS-CoV-2 (PCR) Not detected, Influenza A Untype (PCR) Not detected, Influenza Type B (PCR) Not detected 02/21/22 05:58: WBC 6.6, RBC 3.90 L, Hgb 12.6, Hct 39.3, MCV 100.9 H, MCH 32.2 H, MCHC 32.0, RDW 12.6, Plt Count 224, MPV 9.3, Neut % (Auto) 56.8, Lymph % (Auto) 34.3, [place] % (Auto) 6.3, Eos % (Auto) 1.3, Baso % (Auto) 1.3, Neut # (Auto) 3.8, Lymph # (Auto) 2.3, [place] # (Auto) 0.4, Eos # (Auto) 0.1, Baso # (Auto) 0.1 02/21/22 05:58: Sodium 137, Potassium 4.4, Chloride 108 H, Carbon Dioxide 24, Anion Gap 9.4, BUN 23 H, Creatinine 1.20 H, Estimated Creat C
--- NOTE | 2022-02-21 17:57 | PC.NURSE ---
Spoke to Madison Rodriguez about x-ray results and ct ordered. ct resulted paged Dr. Becerra and notified of results. Per Dr. Becerra patient is ok to discharge today at 1800.
--- NOTE | 2022-02-21 18:02 | PC.NURSE ---
Pacemaker site assessed. tegaderm and gauze clean dry and intact with no signs of bleeding. vital signs stable, pt neurologic status unchanged and alert and oriented X4. small bruising noted at insertion site that was unchanged while on the floor. No complaints of pain.
--- NOTE | 2022-02-22 14:37 | CARE MANAGER ---
Spoke with patient post discharge and she states that she feels fine and has no needs at this time. She will call and make her follow-up appointment with Dr. Becerra.
== END 2022-02-21 18:47 | disposition home or self-care (01) | DRG 243 ==
LOC: 2ND 17:20
PROVIDERS: Admitting Provider Internal Medicine; PCP Family Medicine; Visit Provider Emergency Medicine
PROC: 02H63JZ Insertion of Pacemaker Lead into Right Atrium, Percutaneous Approach (ICD-10-PCS; principal; 2022-02-21 11:30)
DX: I49.5 Sick sinus syndrome (principal); I48.92 Unspecified atrial flutter; E78.5 Hyperlipidemia, unspecified; I25.10 Atherosclerotic heart disease of native coronary artery without angina pectoris; I27.20 Pulmonary hypertension, unspecified; I34.0 Nonrheumatic mitral (valve) insufficiency; I77.9 Disorder of arteries and arterioles, unspecified; K21.9 Gastro-esophageal reflux disease without esophagitis; R94.31 Abnormal electrocardiogram [ECG] [EKG]; I48.0 Paroxysmal atrial fibrillation; I65.23 Occlusion and stenosis of bilateral carotid arteries; Z95.5 Presence of coronary angioplasty implant and graft; I10 Essential (primary) hypertension
CPT/HCPCS: 33208; 36415; 71045; 71250; 80048; 85025; 93312; C1785; C1898; C9803; J2704; U0003; U0005

== ENCOUNTER → 2022-07-24 13:13 | Outpatient (CLI) | payer MEDICARE, SELFPAY ==
--- NOTE | 2022-07-24 13:25 | CA_ITS ---
APPROVED REPORT EXAM: Comprehensive 2D, Doppler, and color-flow Echocardiogram Base Engineer: Abril Russell CRT Ht: 5 ft 6 in Wt: 173lbs BSA: 1.88 BP: 192/70 mmHg Indications: Abnormal ECG, Atrial Fibrillation, CAD, Shortness of Breath 2D Dimensions LVOT 1.67 cm (M/F) 1.5-2.5 M-Mode Dimensions RVDd 2.08 cm (0.9-2.6) LA Diam 3.59 cm (1.9-4.0) LVDd 4.40 cm (3.5-5.7) Ao Diam 3.61 cm (2.0-3.7) LVDs 2.68 cm (3.5-5.7) IVSd 1.61 cm (0.6-1.1) PWd 0.93 cm (0.6-1.1) EF (Teich) 69.80% FS 39.10% EDV (Teich) 87.70 mL ESV (Teich) 26.50 mL LV Diastology E Decel Time 293.00 (160-240 msec) E/A Ratio 0.59 MED E' 4.10 (< 7 cm/sec) MED A' 9.10 cm/s E'/MED E' Ratio 17.46 (>14) LAT E' 7.30 (<10 cm/sec) LAT A' 13.20 cm/s E/LAT E' Ratio 9.81 (>14) Aortic Valve AI PHT 537.00 ms AO Peak GR. 8.60 mmHg Mitral Valve MV A Velocity 120.00 (40-130 cm/s) E/A Ratio 0.59 MV Decel. Time 293.00 (160-240 ms) Pulmonary Valve PV Peak Velocity 145.00 (50-150 cm/s) Tricuspid Valve TR P. Velocity 276.00 cm/s RAP Estimate 10.00 mmHg RVSP 40.40 mmHg Left Ventricle Atrium is mildly enlarged, left ventricle is normal size mild concentric left ventricular hypertrophy, estimated ejection fraction 55% with no regional wall motion abnormality, diastolic parameters are inconclusive. Right Ventricle Right atrium and right ventricle are normal size and contractility. Aortic Valve Aortic valve is minimally thickened and fibrosed there is no aortic stenosis or aortic insufficiency. Mitral Valve Mitral valve leaflets are minimally thickened, there is mild mitral regurgitation. Tricuspid Valve Tricuspid valve grossly normal, there is mild tricuspid regurgitation, tricuspid regurgitation jet velocity is inadequate for calculation of the right ventricular systolic pressure. Pulmonic Valve Pulmonic valve is poorly visualized. Great Vessels Aortic root is normal size. Inferior vena cava is poorly visualized. Pericardium No significant pericardial effusion noted. Conclusion 1. Mildly enlarged left atrium, normal left ventricular size, mild concentric left ventricular hypertrophy, estimated ejection fraction 55% with no regional wall motion abnormality, diastolic parameters are inconclusive. 2. Mild mitral and tricuspid regurgitation. 3. No significant pericardial effusion. 4. Inferior vena cava is poorly visualized. Electronically signed by : Huey Feng MD 07/24/2022 15:45:16
== END ==
PROVIDERS: PCP Family Medicine; Visit Provider Internal Medicine
DX: E78.2 Mixed hyperlipidemia (principal); I11.9 Hypertensive heart disease without heart failure; I25.10 Atherosclerotic heart disease of native coronary artery without angina pectoris; I27.20 Pulmonary hypertension, unspecified; I34.0 Nonrheumatic mitral (valve) insufficiency; I48.0 Paroxysmal atrial fibrillation; I48.92 Unspecified atrial flutter; I65.23 Occlusion and stenosis of bilateral carotid arteries; K21.9 Gastro-esophageal reflux disease without esophagitis; R94.31 Abnormal electrocardiogram [ECG] [EKG]
CPT/HCPCS: 93306

== ENCOUNTER → 2023-01-22 12:35 | Outpatient (CLI) | payer MEDICARE, SELFPAY ==
--- NOTE | 2023-01-22 13:27 | CT_ITS ---
FINAL REPORT TECHNIQUE: Axial images of the chest was performed by computed tomography. 1.25 x 10 mm axial images high-resolution images were obtained and reviewed. CLINICAL HISTORY: R91.8 - Other nonspecific abnormal finding of lung field COMPARISON: 02/21/2022 FINDINGS: The previously identified mediastinal stranding and adenopathy is no longer identified. There is streak artifact arising from a pacemaker. There is moderate coronary artery calcification. The lungs are clear. The heart size is normal. There is no pericardial or pleural effusion. There is a calcified granuloma in the right upper lobe. There is no evidence of bronchiectasis. No definite fibrosis is identified Multiple gallstones are identified. IMPRESSION: No evidence of bronchiectasis or fibrosis. Reviewed, Interpreted and Dictated by Abdiaziz Carbajal MD Transcribed by Cady Aparicio Authenticated and [facility]
== END ==
PROVIDERS: Visit Provider Internal Medicine
DX: R91.8 Other nonspecific abnormal finding of lung field (principal)
CPT/HCPCS: 71250

== ENCOUNTER 2024-09-03 11:18 | Outpatient (CLI) | payer MEDICARE, SELFPAY ==
[2024-09-03 11:45] VITALS: BP 139/85; PULSE 62; RESP 17; O2SAT 98
[2024-09-03] MEDS: INCLISIRAN SODIUM 284 MG/1.5 ML SYRINGE SUBCUT (11:45)
== END 2024-09-03 12:00 | disposition home or self-care (01) ==
PROVIDERS: PCP Family Medicine; Visit Provider Internal Medicine
DX: M81.0 Age-related osteoporosis without current pathological fracture (principal)
CPT/HCPCS: 96372; J1306

== ENCOUNTER 2024-12-22 12:13 | Outpatient (CLI) | payer MEDICARE, SELFPAY ==
[2024-12-22] MEDS: INCLISIRAN SODIUM 284 MG/1.5 ML SYRINGE SUBCUT (12:26)
[2024-12-22 12:30] VITALS: BP 147/85; PULSE 107; RESP 18; TEMP 36.4; O2SAT 98
[2024-12-22 12:51] LABS: Basophils # 0.1 K/mm3 (0-0.2); Basophils % 0.8 % (0.1-2.0); Eosinophils # 0.1 K/mm3 (0.0-0.4); Eosinophils % 1.1 % (0.1-12.0); Hematocrit 36.9 % (37.0-47.0); Hemoglobin 11.9 g/dL (12.2-16.2); Lymphocytes # 2.1 K/mm3 (0.7-4.5); Lymphocytes % 33.1 % (10-50); Mean Corpuscular HGB Conc 32.2 g/dL (31.8-35.4); Mean Corpuscular Hemoglobin 31.6 pg (27.0-31.2); Mean Corpuscular Volume 97.9 fl (81-99); Mean Platelet Volume 10.5 fl (7.4-10.4); Monocytes # 0.7 K/mm3 (0.1-1.0); Monocytes % 10.6 % (1.7-9.3); Neutrophils # 3.4 K/mm3 (1.8-7.8); Neutrophils % 54.2 % (37.0-80.0); Platelet Count 209 K/mm3 (142-424); Red Blood Count 3.77 M/mm3 (4.20-5.40); Red Cell Distribution Width 11.9 % (11.5-17.5); White Blood Count 6.2 K/mm3 (4.8-10.8)
[2024-12-22 13:15] LABS: Alanine Aminotransferase 39 U/L (12-78); Albumin Level 4.2 g/dl (3.5-5.0); Alkaline Phosphatase 83 U/L (38-126); Anion Gap 13.9 mEq/L (5-15); Aspartate Amino Transferase 36 U/L (14-36); Bilirubin,Direct 0.2 mg/dl (0.0-0.4); Bilirubin,Indirect 0.3 mg/dL (0.0-0.9); Bilirubin,Total 0.5 mg/dl (0.2-1.3); Bilirubin,Unconjugated 0.3 mg/dL (0.0-1.1); Blood Urea Nitrogen 22 mg/dl (7-17); Calcium 9.1 mg/dl (8.4-10.2); Carbon Dioxide 28 mmol/L (22.0-30.0); Chloride 103 mmol/L (98-107); Chol/HDL Ratio 2.9 (1-3.5); Cholesterol 169 mg/dl (140-200); Estimated Glomerular Filt Rate 47 ml/min (>60); GFR (African American) 57 ML/MIN (>60); Glucose 83 mg/dl (74-100); HDL Cholesterol 59 mg/dl (40-60); Potassium 4.9 mmoL/L (3.5-5.1); Sodium 140 mmol/L (136-145); Total Protein,Serum 6.4 g/dl (6.3-8.2); Triglycerides 108 mg/dl (30-150); VLDL Cholesterol 22 mg/dL (0-40)
[2024-12-22 13:26] LABS: Direct LDL Cholesterol 71.67 mg/dL (100-129)
[2024-12-22 13:32] LABS: Free T4 (Free Thyroxine) 1.38 ng/dl (0.78-2.19)
[2024-12-22 13:45] LABS: Thyroid Stimulating Hormone 1.34 uIU/mL (0.465-4.68)
== END 2024-12-22 12:30 | disposition home or self-care (01) ==
PROVIDERS: Visit Provider Internal Medicine
DX: I48.92 Unspecified atrial flutter (principal); I25.10 Atherosclerotic heart disease of native coronary artery without angina pectoris; I48.0 Paroxysmal atrial fibrillation; I65.23 Occlusion and stenosis of bilateral carotid arteries; I34.0 Nonrheumatic mitral (valve) insufficiency; I11.9 Hypertensive heart disease without heart failure; E78.2 Mixed hyperlipidemia; R94.31 Abnormal electrocardiogram [ECG] [EKG]; I27.20 Pulmonary hypertension, unspecified; K21.9 Gastro-esophageal reflux disease without esophagitis
CPT/HCPCS: 36415; 80048; 80061; 80076; 83735; 84439; 84443; 85025; 96372; J1306

== ENCOUNTER 2025-01-28 14:59 | Outpatient (CLI) | payer MEDICARE, SELFPAY ==
[2025-01-28 15:43] LABS: Basophils % 0.6 % (0.1-2.0); Eosinophils % 0.5 % (0.1-12.0); Hematocrit 41.5 % (37.0-47.0); Hemoglobin 13.4 g/dL (12.2-16.2); Lymphocytes # 1.8 K/mm3 (0.7-4.5); Lymphocytes % 28.5 % (10-50); Mean Corpuscular HGB Conc 32.3 g/dL (31.8-35.4); Mean Corpuscular Hemoglobin 31.2 pg (27.0-31.2); Mean Corpuscular Volume 96.7 fl (81-99); Mean Platelet Volume 10.7 fl (7.4-10.4); Monocytes # 0.6 K/mm3 (0.1-1.0); Monocytes % 9.4 % (1.7-9.3); Neutrophils # 3.9 K/mm3 (1.8-7.8); Neutrophils % 60.7 % (37.0-80.0); Platelet Count 233 K/mm3 (142-424); Red Blood Count 4.29 M/mm3 (4.20-5.40); Red Cell Distribution Width 11.3 % (11.5-17.5); White Blood Count 6.4 K/mm3 (4.8-10.8)
[2025-01-28 16:21] LABS: Alanine Aminotransferase 25 U/L (12-78); Albumin Level 4.8 g/dl (3.5-5.0); Alkaline Phosphatase 94 U/L (38-126); Anion Gap 14.4 mEq/L (5-15); Aspartate Amino Transferase 36 U/L (14-36); Bilirubin,Direct 0.3 mg/dl (0.0-0.4); Bilirubin,Indirect 0.5 mg/dL (0.0-0.9); Bilirubin,Total 0.8 mg/dl (0.2-1.3); Bilirubin,Unconjugated 0.5 mg/dL (0.0-1.1); Blood Urea Nitrogen 22 mg/dl (7-17); Calcium 10.2 mg/dl (8.4-10.2); Carbon Dioxide 27 mmol/L (22.0-30.0); Chloride 103 mmol/L (98-107); Chol/HDL Ratio 1.8 (1-3.5); Cholesterol 123 mg/dl (140-200); Estimated Glomerular Filt Rate 39 ml/min (>60); GFR (African American) 47 ML/MIN (>60); Glucose 90 mg/dl (74-100); HDL Cholesterol 70 mg/dl (40-60); Potassium 4.4 mmoL/L (3.5-5.1); Sodium 140 mmol/L (136-145); Total Protein,Serum 7.4 g/dl (6.3-8.2); Triglycerides 91 mg/dl (30-150); VLDL Cholesterol 18 mg/dL (0-40)
[2025-01-28 16:30] LABS: NT Pro Brain Natriuretic Pep. 1690 pg/mL (0-450)
[2025-01-28 16:33] LABS: Direct LDL Cholesterol 30.06 mg/dL (100-129)
[2025-01-28 16:37] LABS: Free T4 (Free Thyroxine) 1.82 ng/dl (0.78-2.19)
[2025-01-28 16:52] LABS: Thyroid Stimulating Hormone 0.94 uIU/mL (0.465-4.68)
== END 2025-01-28 23:59 | disposition home or self-care (01) ==
LOC: LAB 15:00
PROVIDERS: Visit Provider Internal Medicine
DX: I25.10 Atherosclerotic heart disease of native coronary artery without angina pectoris (principal); I65.23 Occlusion and stenosis of bilateral carotid arteries; I11.9 Hypertensive heart disease without heart failure; E78.2 Mixed hyperlipidemia; I27.20 Pulmonary hypertension, unspecified
CPT/HCPCS: 36415; 80048; 80061; 80076; 83880; 84439; 84443; 85025

== ENCOUNTER 2025-03-17 09:05 | Day surgery (SDC) | payer MEDICARE, SELFPAY ==
[2025-03-13 17:02] VITALS: BMI 25.8
[2025-03-17 09:24] VITALS: BP 144/94; PULSE 97; RESP 16; TEMP 36.2; O2SAT 98
--- NOTE | 2025-03-17 09:27 | ECG_ITS ---
APPROVED REPORT Exam: Resting ECG HR:103 bpm ECG Measurements Heart Rate 103 AXES GA 147 P 84 QRSd 86 QRS 40 QT 240 T -43 QTc 300 Conclusion UNCERTAIN IRREGULAR RHYTHM ELECTRONIC VENTRICULAR PACEMAKER -- CONTOUR ANALYSIS BASED ON INTRINSIC RHYTHM NONSPECIFIC ST & T-WAVE ABNORMALITY CRITICAL TEST RESULT UNCONFIRMED REPORT Electronically signed by : Kendrick Thomas MD 03/18/2025 07:32:34
[2025-03-17] MEDS: LACTATED RINGERS 1000ML 1,000 ML 50 ML IV (09:34)
--- NOTE | 2025-03-17 09:44 | EXP.ANES.CKL ---
[facility] Disclaimer: The information contained in this section may have been updated after the patient was seen, as this information can be updated by other users. Medical History History of pacemaker Thyroid nodule Pulmonary nodules Atrial flutter Abnormal EKG Crescendo angina Pulmonary hypertension Carotid artery disease Angina, class III Moderate mitral valve regurgitation CAD (coronary artery disease) Other forms of angina pectoris Surgical History H/O right heart catheterization H/O tubal ligation H/O thyroidectomy Family History Other No significant family history Social History Smoking Status: Never smoker alcohol intake: never substance use type: denies use current occupational status: other Travel in the last 8 weeks?: Inside the [place] household members: spouse housing: house caffeine: No Have you lived/traveled outside [place] in past 30 days?: No Contact w/someone who lives/traveled outside US past 30 days?: No Exposure to someone with infectious disease in past 14 days?: No Do you have a fever (greater than 100.4 F or 38 C)?: No Have you tested positive for COVID-19?: No Exposed to someone with COVID-19 in past 14 days?: No Do you have a sore throat?: No Do you have a cough?: No Do you have any weakness?: No Do you have any diarrhea?: No Are you experiencing any unusual bleeding?: No Do you have any muscle aches/pain?: No Do you have any abdominal pain?: No Are you experiencing loss of taste or smell?: No [facility] Anesthesia Checklist Patient Identification Patient Identification: Arm Band Structural Data Admitted From: Home Planned Operative Procedure/s: ISAMAR Consent for Planned Operative Procedure(s) Verified: Yes Verified Documents: Surgical Consent and History and Physical NPO Status Verified Time NPO: 00:00 Additional verifications Anesthesia Reactions: No Hx Blood Transfusions: No Blood Transfusion Reaction: No Airway Assessment Mallampati Score:: Class II C-Spine Mobility Assessed: Yes TMJ Mobility Assessed: Yes Dentition: Good Dentition Neurological Assessment Level of Consciousness: Awake, Alert and Appropriate Anesthesia Plan Anesthesia Risk discussed: Yes Anesthesia Plan: Verified ASA Class: III Anesthesia Type: MAC
[2025-03-17 09:48] LABS: Basophils % 0.7 % (0.1-2.0); Eosinophils # 0.1 Kmm3 (0.0-0.4); Hematocrit 39.6 % (37.0-47.0); Hemoglobin 13.2 g/dL (12.2-16.2); Immature Granulocytes # 0.01 10^3uL; Immature Granulocytes % 0.2 %; Mean Corpuscular HGB Conc 33.3 g/dL (31.8-35.4); Mean Corpuscular Volume 96.1 fl (81-99); Monocytes # 0.6 K/mm3 (0.1-1.0); Monocytes % 9.6 % (1.7-9.3); Neutrophils # 3.4 K/mm3 (1.8-7.8); Neutrophils % 55.5 % (37.0-80.0); Nucleated Red Blood Cells # 0 10^3/uL; Nucleated Red Blood Cells % 0 %; Platelet Count 186 K/mm3 (142-424); Red Blood Count 4.12 M/mm3 (4.20-5.40); Red Cell Distribution Width 11.7 % (11.5-17.5)
[2025-03-17 10:09] LABS: Chloride 109 mmol/L (98-107); Sodium 138 mmol/L (136-145)
[2025-03-17 10:10] LABS: Potassium 4.9 mmoL/L (3.5-5.1)
[2025-03-17 10:12] LABS: Blood Urea Nitrogen 26 mg/dl (7-17); Creatinine Clearance Estimated 44 mL/min (50-200); Estimated Glomerular Filt Rate 47 ml/min (>60); GFR (African American) 57 ML/MIN (>60)
[2025-03-17 10:13] LABS: Anion Gap 7.9 mEq/L (5-15); Calcium 9.1 mg/dl (8.4-10.2); Carbon Dioxide 26 mmol/L (22.0-30.0); Glucose 101 mg/dl (74-100)
[2025-03-17 10:14] LABS: INR 1.19 (0.9-1.1); Prothrombin Time 13.1 seconds (10.1-12.5)
[2025-03-17 11:18] VITALS: BP 115/67; PULSE 60; RESP 14; TEMP 36.2; O2SAT 94
[2025-03-17 11:28] VITALS: BP 106/64; PULSE 60; RESP 16; O2SAT 93
[2025-03-17 11:38] VITALS: BP 115/65; PULSE 60; RESP 16; O2SAT 95
--- NOTE | 2025-03-17 11:40 | SUR.PHASEII ---
1129- ekg performed by post op staff. results called to dr. gregory and porfirio lan md.
[2025-03-17 11:48] VITALS: BP 114/73; PULSE 60; RESP 16; O2SAT 94
--- NOTE | 2025-03-17 13:22 | SUR.OPER ---
Naheed Worthington performed cardioversion at 150j. One shock delivered. Pt in NSR, paced at 60 following.
== END 2025-03-17 12:20 | disposition home or self-care (01) ==
PROVIDERS: Visit Provider Internal Medicine
DX: I34.0 Nonrheumatic mitral (valve) insufficiency (principal); I48.92 Unspecified atrial flutter; I25.10 Atherosclerotic heart disease of native coronary artery without angina pectoris; Z79.899 Other long term (current) drug therapy
CPT/HCPCS: 80048; 85025; 85610; 92960; 93005; 93270; 93312; 93319; J7120